=== PATIENT | male | born 1970 | race Caucasian/White ===

== ENCOUNTER 2022-04-05 02:36 | Emergency (ER) | payer SELFPAY ==
[2022-04-05] MEDS ORDERED: Lidocaine 1%/Epinephrine 1:100K 10 ML VIAL ONE (03:01)
[2022-04-05] MEDS ORDERED: Acetaminophen 500 MG TAB ONE (03:01)
[2022-04-05] MEDS ORDERED: Bacitracin 1 PK ONE (03:01)
[2022-04-05] MEDS ORDERED: Ondansetron ODT 4 MG TAB ONE (03:14)
[2022-04-05] MEDS ORDERED: Cephalexin 500 MG CAP ONE (04:50)
== END 2022-04-05 04:53 | disposition home or self-care (01) ==
LOC: MADERS 02:36
DX: S81.811A Laceration without foreign body, right lower leg, initial encounter (principal); F17.200 Nicotine dependence, unspecified, uncomplicated; W25.XXXA Contact with sharp glass, initial encounter
CPT/HCPCS: 12005; Q0162

== ENCOUNTER 2022-09-29 21:49 | Emergency (ER) | payer SELFPAY ==
[2022-09-29] MEDS ORDERED: Lidocaine 1% (PF) 30 ML VIAL ONE (22:30)
[2022-09-29 22:45] LABS: #Basophils 0.1 thou/uL (0.0-0.2); #Eosinphils 0.1 thou/uL (0.0-0.7); #Lymphocytes 2.6 thou/uL (1.20-3.40); #Monocytes 0.9 thou/uL (0.11-0.59); #Neutrophils 6.8 thou/uL (1.40-6.50); %Basophils 0.7 % (0.0-1.0); %Eosinophils 1.2 % (0.0-10.0); %Lymphocytes 25.1 % (21.0-51.0); %Monocytes 8.5 % (0.0-10.0); %Neutrophils 64.6 % (42.0-75.0); Hemoglobin 15.7 g/dL (14.0-18.0); Mean Corpuscular HGB CONC 33.5 g/dL (32.0-36.0); Mean Corpuscular Hemoglobin 27.9 pg (27.0-31.0); Mean Corpuscular Volume 83.2 fl (78.0-98.0); Mean Platelet Volume 7.5 fL (7.4-10.4); Platelet Count 238 10x3/uL (130-400); RBC Distribution Width 12.6 % (11.5-14.5); Red Blood Cell (RBC) Count 5.61 mill/uL (4.70-6.10); White Blood Cell (WBC) Count 10.5 10x3/uL (4.8-10.8)
[2022-09-29 22:51] LABS: ALT (SGPT) 34 U/L (8-55); AST (SGOT) 29 U/L (5-34); Albumin 4.3 g/dL (3.5-5.0); Alkaline Phosphatase 93 U/L (40-110); Anion Gap 12 mmol/L (10-20); BUN (Urea Nitrogen) 10 mg/dL (8.4-25.7); Bilirubin, Total 0.8 mg/dL (0.2-1.2); Calc. Creatinine Clearance 0 mL/min (70-130); Calcium 9.5 mg/dL (7.8-10.44); Carbon Dioxide 25 mmol/L (22-29); Chloride 107 mmol/L (98-107); Estimated GFR 82; Globulin 3.2 g/dL (2.4-3.5); Glucose 97 mg/dL (70-105); Potassium 3.4 mmol/L (3.5-5.1); Protein, Total 7.5 g/dL (6.0-8.3); Sodium 141 mmol/L (136-145)
[2022-09-29 23:03] LABS: Alcohol Less than 10 mg/dL (Less than 10); Salicylate Less than 8.0 mg/dL (15.0-30.0)
[2022-09-29] MEDS ORDERED: Clindamycin/D5W 600 mg/50 ml Premix Bag ONE (23:21)
== END 2022-09-30 00:42 | disposition left against medical advice (07) ==
LOC: MADERS 21:49
DX: Z53.21 Procedure and treatment not carried out due to patient leaving prior to being seen by health care provider (principal)
CPT/HCPCS: 70450; 72125; 80053; 80307; 85025; J2001; J3490